=== PATIENT | female | born 1980 | race Two or more races ===

== ENCOUNTER 2024-06-16 11:08 | Emergency (ER) | payer MEDICAID, SELFPAY ==
--- NOTE | 2024-06-16 11:19 | XR_ITS ---
Examination: Abdomen sonogram, Limited Date and time of exam: June 16, 2024 1131 hrs. Indications: Severe epigastric pain onset today Technique: Real-time weaver scale transabdominal sonographic images of the upper abdomen obtained. Findings: Gallbladder sludge No gallstones Normal gallbladder wall Normal common bile duct 0.3 cm Pancreas obscured by bowel gas Liver 13.8 cm fatty infiltration Normal hepatopedal portal venous flow Patent IVC Impression: Negative for cholelithiasis, negative for cholecystitis
[2024-06-16 11:20] VITALS: BP 133/88; PULSE 94; RESP 18; TEMP 36.3; O2SAT 100
--- NOTE | 2024-06-16 11:20 | PD.EDRME ---
Rapid Medical Screening Exam RME Arrival date/time: 06/16/24 11:08 43-year-old female with no known medical history presents to the emergency room with a chief complaint of 10 out of 10 right upper quadrant abdominal pain and tenderness that radiates to the epigastric area of her abdomen x 2 days I have greeted and performed a focused initial assessment of this patient. A comprehensive ED assessment and evaluation of the patient, analysis of all test results, and completion of the medical decision making process will be conducted by additional ED providers. Chief Complaint: Abdominal Pain Vital signs reviewed by provider: Yes
[2024-06-16] MEDS: HYDROcodone/APAP 5/325 TABLET 1 TAB PO (11:46)
[2024-06-16] MEDS: MG HYD/AL HYD/SIME (Maalox Reg) SUSP 30 ML UDC PO (11:46)
[2024-06-16] MEDS: ONDANSETRON ODT 4 MG TABRAP PO (11:47)
--- NOTE | 2024-06-16 11:50 | PD.EDADULT ---
ED General RME/HPI General Chief complaint: Abdominal Pain Stated complaint: ABD PAIN SINCE YESTERDAY 11/15 Time Seen by Provider: 06/16/24 11:28 Arrival date/time: 06/16/24 11:08 CC: Epigastric right upper quadrant abdominal pain HPI onset suddenly last night, then dissipated and then returned again this morning patient stated it has been persistent with nausea without vomiting. Prior history of similar events in the previous 2 years. Both were seen in the emergency room both times patient was advised that it was a gastritis. Patient denies fever chills chest pain shortness of breath or difficulty breathing. Localized pain 6 on a 10 scale radiating from the epigastrium to the right upper quadrant. RME / HPI RME / HPI narrative: 06/16/24 11:08 43-year-old female with no known medical history presents to the emergency room with a chief complaint of 10 out of 10 right upper quadrant abdominal pain and tenderness that radiates to the epigastric area of her abdomen x 2 days I have greeted and performed a focused initial assessment of this patient. A comprehensive ED assessment and evaluation of the patient, analysis of all test results, and completion of the medical decision making process will be conducted by additional ED providers. Related Data Previous Rx's ?Medication ?Instructions ?Recorded hydrocodone 5 mg-acetaminophen 325 1 tab PO Q4H PRN pain #14 tabs 06/05/18 mg tablet (Idalou) meloxicam 7.5 mg tablet 7.5 mg PO BID #14 tabs 04/04/22 pantoprazole 40 mg tablet,delayed 40 mg PO QDAY #10 tabs 04/01/23 release (Protonix) famotidine 20 mg tablet 20 mg PO QDAY #20 tabs 06/16/24 meloxicam 7.5 mg tablet 7.5 mg PO QDAY #10 tabs 06/16/24 ondansetron 4 mg disintegrating 4 mg PO Q8H #20 tabs 06/16/24 tablet Allergies Allergy/AdvReac Type Severity Reaction Status Date / Time No Known Allergies Allergy Verified 06/16/24 11:11 Review of Systems Review of Systems Narrative Review of Systems: GEN: No fever, no chills, no weight loss EYES: No discharge, no visual changes, no pain HEENT: No ear pain, no congestion, no sore throat PULM: No shortness of breath, no cough, no congestion CV: No chest pain, no dyspnea on exertion, no palpitations GI: + nausea, no vomiting, no diarrhea, + pain, no constipation : No frequency, no urgency, no dysuria MUSC/SKEL: No joint pain, no back pain SKIN: No rash PSYCH: No hallucinations, no depression HEME/LYMPH: No easy bleeding or bruising tendencies NEURO: No weakness, no headache Past Medical History Past Medical History CARDIAC: Negative Congestive Heart Failure RESPIRATORY: Negative Chronic Obstructive Pulmonary Disease (COPD) GENITOURINARY: Negative Renal Disease ENDOCRINE: Negative Diabetes Mellitus Type 1 or Diabetes Mellitus Type 2 Social History SMOKING STATUS: Never smoker ED Exam Narrative Physical exam: [General: Obese, in mild discomfort but not in any acute distress Head normocephalic HEENT: Within acceptable limits Neck is supple nontender Chest equal chest rise nontender to palpation Respiratory: Clear to auscultation no wheezes crackles or rubs CV: Rate rhythm is regular no murmurs rubs or clicks Abdomen is distended secondary to body habitus, epigastric tenderness without reflexive guarding or rebound tenderness there is also right upper quadrant tenderness with palpation, no left upper or lower abdominal pain with palpation. Back: No CVA tenderness no spinous process tenderness from cervical spine thoracic and lumbar spine Skin: Intact no petechiae rash induration ulceration or crepitus Extremities: Moving all extremity against resistance cap refill less than 2 seconds neurosensory intact Neuro: Awake alert oriented x3 Glascow coma 15 no focal deficits] Course Course Course Narrative: Reassessment of this patient at 1423 the patient is significantly improved, the patient has no significant electrolyte imbalances how however there is a rise in the T. bili. Ultrasound shows that the patient has no CBD dilatation initially I was concerned the patient will need an MRCP now I find out the patient is only been taking omeprazole as needed she is vies not to take it on a daily basis and follow-up with her primary care provider. Patient also advised to continue with a bland diet for the next 2 weeks. Patient also advised if there is a worsening of symptoms return the emergency room for reevaluation Quality Measures none Orders Category Date Time Status Insert IV NOW Care 06/16/24 12:17 Completed US gall bladder Stat Exams 06/16/24 11:19 Completed CBC Stat Lab 06/16/24 12:05 Completed CMP [Comprehensive Metabolic Panel] Stat Lab 06/16/24 12:05 Completed HCG Qualitative,Urine Stat Lab 06/16/24 13:36 Completed Lipase Stat Lab 06/16/24 12:05 Completed UA [Urinalysis] Stat Lab 06/16/24 13:36 Completed Urine Culture Stat Lab 06/16/24 13:36 Received Famotidine Inj [Pepcid Inj] Med 06/16/24 12:21 Discontinued 20 mg IVP X1 ONE HYDROcodone*/APAP 5/325 [Idalou 5/325] Med 06/16/24 11:19 Discontinued 1 tab PO X1 ONE Lidocaine 2% Viscous [Xylocaine 2% Viscous] Med 06/16/24 11:57 Discontinued 15 ml PO X1 ONE Lidocaine 2% Viscous [Xylocaine 2% Viscous] Med 06/16/24 12:00 Discontinued 15 ml PO X1 ONE Morphine Inj Med 06/16/24 12:07 Discontinued 4 mg IVP X1 ONE Ondansetron Inj [Zofran Inj] Med 06/16/24 12:07 Discontinued 4 mg IV X1 ONE Ondansetron Odt [Zofran Odt] Med 06/16/24 11:19 Discontinued 4 mg PO X1 ONE mg Hyd/Al Hyd/Jonathon Susp [Maalox Susp] Med 06/16/24 11:19 Discontinued 30 ml PO X1 ONE oxyCODONE/APAP 5/325 [Percocet 5/325] Med 06/16/24 13:45 Discontinued 1 tab PO X1 ONE Vital Signs Vital signs: Vital Signs Temperature 97.4 F 06/16/24 11:20 Pulse Rate 94 06/16/24 11:20 Respiratory Rate 18 06/16/24 11:20 Blood Pressure 133/88 H 06/16/24 11:20 Pulse Oximetry (%) 100 06/16/24 11:20 Oxygen Delivery Method Room Air 06/16/24 11:20 Discharge Plan Plan Patient Disposition: HOME (Self Care) Patient condition on transfer: Stable Prescriptions/Referrals Prescriptions/Med Rec: New ondansetron 4 mg tablet,disintegrating 4 mg PO Q8H Qty: 20 0RF meloxicam 7.5 mg tablet 7.5 mg PO QDAY Qty: 10 0RF famotidine 20 mg tablet 20 mg PO QDAY Qty: 20 0RF No Action hydrocodone-acetaminophen [Idalou] 5-325 mg tablet 1 tab PO Q4H MDD 1 tab PRN (Reason: pain) Qty: 14 0RF meloxicam 7.5 mg tablet 7.5 mg PO BID Qty: 14 0RF pantoprazole [Protonix] 40 mg tablet,delayed release (DR/EC) 40 mg PO QDAY Qty: 10 0RF Referrals: Mei Santo PA-C [Primary Care Provider] - In 1 week Problem List Clinical Impression: Epigastric pain Patient/Caregiver Discharge Instructions Education Materials: ED Epigastric Pain (Uncertain Cause) Additional Instructions: Take omeprazole prescribed by your primary provider on a daily basis. Change to a bland diet for the next 7 to 10 days. Avoid all greasy spicy fatty foods. If there is a worsening of symptoms return the emergency room medially for further evaluation. Print Language: [place] Stand Alone Forms: Identify Award Info., Work/School Release, Patient Portal Info Letter MDM Clinical Information Provided by: patient Medical Records reviewed [facility] Labs/Rad/Tests considered, not ordered Describe: CBC shows no acute leukocytosis anemia thrombocytopenia CMP shows no acute electrolyte imbalances renal impairment there is no transaminitis however T. bili is at 2.6 with a rise from 1.31-year ago. Lipase is within acceptable limits Urine shows no signs of urinary tract infection. Gallbladder ultrasound shows no CBD dilatation gallbladder sludge, no other acute finding. Medication Administration(s) Medication Administration History Discontinued Medications Hydrocodone Bitart/Acetaminophen (Hydrocodone/Apap 5/325 Tablet) 1 tab PO X1 ONE Stop: 06/16/24 11:20 Last Admin: 06/16/24 11:46 Dose: 1 tab Documented By: MICHAEL Al Hydrox/Mg Hydrox/Simethicone (Mg Hyd/Al Hyd/Jonathon (Maalox Reg) Susp 30 Ml Udc) 30 ml PO X1 ONE Stop: 06/16/24 11:20 Last Admin: 06/16/24 11:46 Dose: 30 ml Documented By: MICHAEL Famotidine (Famotidine Inj 10 Mg/Ml Vial 2 Ml) 20 mg IVP X1 ONE Stop: 06/16/24 12:22 Last Admin: 06/16/24 12:36 Dose: 20 mg Documented By: MICHAEL Lidocaine HCl (Lidocaine Viscous 2% 15 Ml Udc) 15 ml PO X1 ONE Stop: 06/16/24 11:58 Last Admin: 06/16/24 12:00 Dose: 15 ml Documented By: MICHAEL Lidocaine HCl (Lidocaine Viscous 2% 15 Ml Udc) 15 ml PO X1 ONE Stop: 06/16/24 12:01 Last Admin: 06/16/24 12:01 Dose: Not Given Documented By: MICHAEL Non-Admin Reason: Duplicate Medication on eMAR Morphine Sulfate (Morphine Sulf Inj 10 Mg/Ml Vial) 4 mg IVP X1 ONE Stop: 06/16/24 12:08 Last Admin: 06/16/24 12:14 Dose: 4 mg Documented By: MICHAEL Ondansetron HCl (Ondansetron Odt 4 Mg Tabrap) 4 mg PO X1 ONE; Protocol Stop: 06/16/24 11:20 Last Admin: 06/16/24 11:47 Dose: 4 mg Documented By: MICHAEL Ondansetron HCl (Ondansetron Inj 2 Mg/Ml Inj 2 Ml) 4 mg IV X1 ONE; Protocol Stop: 06/16/24 12:08 Last Admin: 06/16/24 12:13 Dose: 4 mg Documented By: MICHAEL Oxycodone/Acetaminophen (Oxycodone/Apap 5/325 Tablet) 1 tab PO X1 ONE Stop: 06/16/24 13:46 Last Admin: 06/16/24 13:52 Dose: 1 tab Documented By: MICHAEL
[2024-06-16 11:57] VITALS: BMI 34.7
[2024-06-16] MEDS: LIDOCAINE VISCOUS 2% 15 ML UDC PO (12:00)
[2024-06-16] MEDS: ONDANSETRON INJ 2 MG/ML INJ 2 ML 4 MG IV (12:13)
[2024-06-16] MEDS: MORPHINE SULF INJ 10 MG/ML VIAL 4 MG IVP (12:14)
[2024-06-16 12:22] VITALS: BP 123/91; PULSE 77; RESP 18; TEMP 36.8; O2SAT 99
[2024-06-16] MEDS: FAMOTIDINE INJ 10 MG/ML VIAL 2 ML 20 MG IVP (12:36)
[2024-06-16 12:41] LABS: Basophils # (Auto) 0.1 Thou/mm3 (0.0-0.2); Basophils % (Auto) 1 % (0-2.5); Eosinophils # (Auto) 0.5 Thou/mm3 (0.0-0.5); Eosinophils % (Auto) 5 % (0-10); Hematocrit 43.1 % (36.0-46.0); Hemoglobin 15.3 g/dL (12.0-16.0); Immature Granulocytes % (Auto) 0 % (0-0); Immature Granulocytes Auto 0.01 Thou/mm3 (0.00-0.00); Lymphocytes # (Auto) 1.8 Thou/mm3 (1.0-4.8); Lymphocytes % (Auto) 21 % (10-50); Mean Corpuscular HGB Conc 35.5 g/dl (31.0-37.0); Mean Corpuscular Hemoglobin 30.8 pg (25.0-35.0); Mean Corpuscular Volume 87 fL (80-100); Monocytes # (Auto) 0.5 Thou/mm3 (0.0-0.8); Monocytes % (Auto) 6 % (0-12); Neutrophils # (Auto) 5.6 Thou/mm3 (1.8-7.7); Neutrophils % (Auto) 67 % (37-80); Nucleated Red Blood Cell % 0 /100 WBC (0); Platelet Count 306 Thou/mm3 (140-440); RDW Standard Deviation 39.5 fL (36.4-46.3); Red Blood Count 4.96 Miln/mm3 (4.00-5.20); White Blood Count 8.4 Thou/mm3 (3.6-11.0)
[2024-06-16 12:52] LABS: Alanine Aminotransferase 46 U/L (10-49); Albumin, Serum 4.9 gm/dL (3.5-5.0); Albumin/Globulin Ratio 1.6 (1.2-2.2); Alkaline Phosphatase 104 U/L (46-116); Anion Gap 9 (7-16); Aspartate Amino Transferase 39 U/L (0-34); BUN/Creatinine Ratio 16 Ratio (12-20); Bilirubin,Total 2.6 mg/dL (0.3-1.2); Blood Urea Nitrogen 11 mg/dL (9-23); Calcium 9.3 mg/dL (8.3-10.6); Calcium (Corrected) 9.3 mg/dL (8.5-10.1); Carbon Dioxide 25.4 mMol/L (20.0-31.0); Chloride 105 mMol/L (98-107); Creatinine (Component) 0.7 mg/dL (0.6-1.3); Estimated Creatinine Clearance 106.7 mL/min (>60); Globulin 3.1 gm/dL (2.3-3.5); Glucose 97 mg/dL (74-106); Lipase 45 U/L (12-53); Osmolality,Calculated 276 (275-295); Potassium 3.5 mMol/L (3.4-5.1); Sodium 139 mMol/L (136-145); eGFR > 60 See Note
[2024-06-16 13:45] LABS: Collection Type, Urine Clean Catch; WBC,Urine 0 /hpf (0-5)
[2024-06-16] MEDS: oxyCODONE/APAP 5/325 TABLET 1 TAB PO (13:52)
[2024-06-16 14:06] LABS: Bacteria,Urine Rare; Bilirubin,Urine Negative (Negative); Blood,Urine Negative (Negative); Color,Urine Yellow (Lt Yel-Yel); Glucose, Urine Negative (Negative); Ketones,Urine Negative (Negative); Leukocyte Esterase,Urine Negative (Negative); Nitrite,Urine Negative (Negative); Protein,Urine Negative (Neg - Trace); RBC,Urine 6 /hpf (0-3); Specific Gravity,Urine 1.023 (1.001-1.035); Squamous Epithelial Cell,Urine 9 /hpf (0-5); Urobilinogen,Urine Negative mg/dL (0.0-1.0)
[2024-06-16 14:07] LABS: Clarity,Urine Hazy (Clear/Hazy); HCG Qualitative,Urine Negative
[2024-06-16 14:35] VITALS: BP 115/75; PULSE 88; RESP 16; TEMP 36.7; O2SAT 99
== END 2024-06-16 14:36 | disposition home or self-care (01) ==
PROVIDERS: Nurse Practitioner Family; Emergency Provider Family Medicine; PCP Physician Assistant Medical
DX: R10.13 Epigastric pain (principal)
CPT/HCPCS: 36415; 76705; 80053; 81001; 81025; 83690; 85025; 87086; 96374; 96375; 99284; J2270; J2405; J3490; Q0162; A9270